=== PATIENT | male | born 1965 | race Caucasian/White ===

== ENCOUNTER 2017-11-14 14:20 | Outpatient (CLI) | payer OTHER ==
[2017-11-14 15:19] LABS: eGFR (African) > 60; eGFR (Non-African) > 60
== END 2017-11-14 14:30 ==
LOC: LAB 14:20
PROVIDERS: ATTEND Family Medicine
DX: E78.00 Pure hypercholesterolemia, unspecified (principal)
CPT/HCPCS: 36415; 80053; 80061